=== PATIENT | female | born 1965 | race Caucasian/White ===

== ENCOUNTER 2022-01-08 12:54 | Emergency (ER) | payer MEDICARE ==
[~2022-01-08 12:54] MED LIST: KEPPRA750 MG PO
== END 2022-01-08 13:49 | disposition home or self-care (01) ==
LOC: ER1 12:54
DX: R22.0 Localized swelling, mass and lump, head (principal); R40.2410 Glasgow coma scale score 13-15, unspecified time; I10 Essential (primary) hypertension; Z88.6 Allergy status to analgesic agent; Z90.710 Acquired absence of both cervix and uterus
CPT/HCPCS: 99283